=== PATIENT | male | born 1940 | race Caucasian/White ===

== ENCOUNTER 2017-05-13 05:13 | Observation (INO) ==
[2017-05-13] MEDS ORDERED: NITROGLYCERIN 2% OINTMENT 1gm PACKET TRANSDERMA ONE (05:24)
[2017-05-13] MEDS ORDERED: ASPIRIN 81 MG CHEWABLE TABLET PO ONE (05:24)
[2017-05-13] MEDS ORDERED: ONDANSETRON 4 MG/2 ML INJECTION IVP ONE (05:24)
[2017-05-13] MEDS ORDERED: MORPHINE SULFATE 4mg INJECTION IVP ONE (05:24)
[2017-05-13] MEDS ORDERED: NITROGLYCERIN 0.4 MG SUBLINGUAL TABLET SL PRN (05:24)
[2017-05-13] MEDS ORDERED: GI COCKTAIL 30 ML PO ONE (05:24)
[2017-05-13] MEDS: SALINE FLUSH 10ml SYRINGE IVF PRN ×2 (05:52→20:47)
--- NOTE | 2017-05-13 05:53 | Emergency Department Report ---
Chest Pain HPI - General Chief Complaint: Chest Pain Stated Complaint: Chest pain Time Seen by Provider: 05/13/17 05:23 - History of Present Illness HPI narrative: 76-year-old gentleman presents with chest pain brought in by EMS. History of coronary artery disease with triple vessel bypass performed in 2016. He awoke at approximately 3 AM with chest pain which did not resolve after 3 sublingual nitroglycerin tablets and presented by EMS at approximately 0515. He does have worse pain with inspiration, pain is between an ache and sharp, 6 out of 10 midsternal. - Related Data Home Medications Medication Instructions Recorded Confirmed Atorvastatin Calcium 20 mg PO HS #90 06/28/15 03/27/17 Donepezil HCl 10 mg PO DAILY #90 06/28/15 03/27/17 Aspirin 81 mg PO DAILY #30 tab 08/09/15 03/27/17 Metformin HCl 1,000 mg PO BIDWM #0 tab 08/09/15 03/27/17 Omeprazole 40 mg PO DAILY #0 cap 08/09/15 03/27/17 Memantine HCl [Memantine HCl] 10 mg PO BID 03/27/17 03/27/17 Metoprolol Tartrate [Lopressor] 25 mg PO AM 03/27/17 03/27/17 Metoprolol Tartrate [Lopressor] 50 mg PO HS 03/27/17 03/27/17 Previous Rx's Medication Instructions Recorded Orphenadrine Tab [Norflex] 100 mg PO TID #30 tab 03/27/17 Allergies Allergy/AdvReac Type Severity Reaction Status Date / Time No Known Drug Allergies Allergy Unknown Verified 05/13/17 05:39 Review of Systems All systems: reviewed and negative except as stated PFSH Patient Stated Medical History Cataracts Yes Hearing Loss Yes Hypertension Yes Myocardial Infarction Yes: 2014 Diabetes Mellitus Type 2 Yes Gastroesophageal Reflux Yes Disease Other GI Yes: DIVERTICULITIS - Social History Smoking status: Never smoker Substance use type: does not use Does patient use chewing tobacco?: No (previous ) Physical Exam - Limitations Limitations: no limitations - General General appearance: alert, in distress - Normal Exams: Head:: Normocephalic without trauma Chest/Respirations:: Clear all bhatt, with good airflow, and symmetry bilaterally Cardiovascular:: Regular rate and rhythm, without murmur or gallop, Pulses 2+ all extremities, capillary refill, <2 seconds all extremities Abdomen:: Bowel sounds positive, soft, non-tender, non-distended, no hepatosplenomegaly, masses or bruits noted - Chest Chest inspection: Present: other (some portion of pain is reproducible on exam with palpation.) Course Vital Signs Temperature 98.3 F 05/13/17 05:13 Pulse Rate 61 05/13/17 05:13 Respiratory Rate 18 05/13/17 05:13 Blood Pressure 129/61 05/13/17 05:13 Pulse Oximetry 95 05/13/17 05:13 Temperature 98.3 F 05/13/17 05:13 Pulse Rate 61 05/13/17 05:13 Respiratory Rate 18 05/13/17 05:13 Blood Pressure 129/61 05/13/17 05:13 Pulse Oximetry 95 05/13/17 05:13 Chest Pain - MDM Narrative Medical decision making narrative: IV normal saline bolus ordered, Nitropaste 1 inch, cardiac labs and EKG ordered. 4 mg of morphine given IV. Patient this time is comfortable and resting. Troponin initial, returns negative. Patient is admitted to Dr. Garcia in CCU for continued rule out cardiac etiology. Dr. Garcia is aware of. At this time d-dimer is still pending and I will follow d-dimer to make sure that is worked up if it returns significantly abnormal. - Differential Diagnosis Likely: stable angina, unstable angina pectoris, atypical chest pain, chest pain - Lab Data Attestation: I reviewed the patient's lab results. Result diagrams: 05/13/17 05:40 05/13/17 05:40 Lab Results 05/13/17 05/13/17 Range/Units 05:40 05:40 WBC 8.1 (4.5-11.0) T/MM3 RBC 4.68 (4.50-5.90) M/MM3 Hgb 13.7 (13.5-17.5) GM/DL Hct 41.4 (41-53) % MCV 88.5 (80-100) UM3 MCH 29.3 (26-34) UUG MCHC 33.1 (31-37) GM/DL RDW Std Deviation 43.9 (36.9-50.2) FL Plt Count 193 (130-400) T/MM3 MPV 8.4 L (9.4-12.4) UM3 Immature Gran % (Auto) 0.1 (0.0-0.5) % Neut % (Auto) 70.6 H (33-66) % Lymph % (Auto) 24.8 (23-45) % [place] % (Auto) 2.2 (0-9.0) % Eos % (Auto) 2.1 (0-4) % Baso % (Auto) 0.2 (0-2) % Neut # (Auto) 5.7 (1.8-7.7) T/MM3 Lymph # (Auto) 2.0 (1-4.8) T/MM3 [place] # (Auto) 0.2 (0-0.8) T/MM3 Eos # (Auto) 0.2 (0-0.5) T/MM3 Baso # (Auto) 0.0 (0-0.2) T/MM3 Abs Immat Gran (auto) 0.01 (0.00-0.03) T/MM3 Turbidity < 20 (0-20) Sodium 143 (134-144) MEQ/L Potassium 4.2 (3.6-5) MEQ/L Chloride 107 (98-107) MEQ/L Carbon Dioxide 24 (22-30) MEQ/L Anion Gap 12 (5-15) MEQ/L BUN 22.0 H (9-20) MG/DL Creatinine 1.2 (0.8-1.5) MG/DL GFR Calculation 59 BUN/Creatinine Ratio 18 (6-26) RATIO Glucose 110 (75-110) MG/DL Calculated Osmolality 279 (261-280) MOSM/KG Calcium 8.8 (8.4-10.2) MG/DL Total Bilirubin 0.40 (0.20-1.30) MG/DL Icterus Index < 2 (0-7) AST 17 (17-59) U/L ALT 27 (21-72) U/L Alkaline Phosphatase 69 (38-126) U/L Troponin I < 0.012 (0-0.12) ng/ml B-Natriuretic Peptide 154 (0-175) pg/mL Total Protein 6.4 (6.3-8.2) G/DL Albumin 3.6 (3.5-5.0) G/DL Globulin 2.8 (2.4-3.6) G/DL Albumin/Globulin Ratio 1.3 (1.1-2.2) RATIO Specimen Hemolysis 25 (0-25) - Radiology Data Attestation: I reviewed the patient's radiology results. Disposition Prescriptions: No Action Atorvastatin Calcium 20 mg PO HS #90 Donepezil HCl 10 mg PO DAILY #90 Metformin HCl 1,000 mg PO BIDWM #0 tab Omeprazole 40 mg PO DAILY #0 cap Metoprolol Tartrate [Lopressor] 50 mg PO HS Memantine HCl [Memantine HCl] 10 mg PO BID Aspirin 81 mg PO DAILY #30 tab Metoprolol Tartrate [Lopressor] 25 mg PO AM Orphenadrine Tab [Norflex] 100 mg PO TID #30 tab Referrals: PATRICIA DANIELS MD [Family Provider] -
--- NOTE | 2017-05-13 07:42 | XRay Report ---
Indication: chest pain PROCEDURE: XR chest 1V: Encounter: Initial Comparison: March 27, 2017 Findings: The lungs are stable in appearance without new focal airspace consolidation. There is no pleural effusion or pneumothorax. The heart size, pulmonary vascularity and mediastinal contours are unchanged. Prior CABG. IMPRESSION: Stable appearance of the chest without acute cardiopulmonary disease. .
[2017-05-13] MEDS ORDERED: MORPHINE SULFATE 10 MG SYRINGE IVP PRN (09:39)
[2017-05-13 09:51] VITALS: BMI 28.4
[2017-05-13] MEDS ORDERED: SALINE FLUSH 10ml SYRINGE ONE ×2 (10:10→11:13)
[2017-05-13] MEDS ORDERED: REGADENOSON 0.4 MG/5 ML INJECTION IVP ONE (10:10)
--- NOTE | 2017-05-13 14:42 | Cardiology History & Physical ---
History of Present Illness HPI: cp She was seen and examined in CCU around 8:30 AM 05/13/2017 Mr. Baugh is a very pleasant 76-year-old male presently demented and who lives with his caring at home. For the last several months she's had some intermittent atypical chest pain and seen in the office and a stress nuclear scan was ordered for April the patient and called back and canceled. Has been his previous state of health without recent chest pain until the morning of presentation 05/13/2017 patient was awakened from sleep a quitting "terrible chest pain right sided more of a sharp nature , worse with breathing, no radiation no associated symptoms of shortness of breath heartburn( dizziness or diaphoresis. give him to sublingual nitros made no change in his chest pain so she appropriately contacted 911 into the emergency department received an additional nitroglycerin without relief but morphine sulfate did relieve his chest pain completely. Chest pain was worse with breathing improved following morphine. No other worsening or relieving factors. No change with position meals or activity or shoulder and arm movement. No recent trauma or falls or sprain of the right shoulder and chest area. Pain was not reproducible by range of motion of the shoulder, although there was some mild reproducible tenderness over the right breast area. See physical exam below. There was no dyspnea he should and both had upper respiratory infection with some drainage and cough resolved one week ago. Patient is not having any cough fever or dyspnea at present time. noticed pt is chronically taking deep sighs at random times and not related with physical activity. She said she, on her own, brought down a [employer] on 05/12/2017 that he has not done any work. Review of Systems All systems PM: 10-point ROS was reviewed, no additional remarkable complaints except - Constitutional Constitutional: Absent: anorexia, chills, fever(s), headache(s) - EENMT Balance: Absent: vertigo, falling to one side Mouth/Throat: Absent: sore throat - Cardiovascular Cardiovascular: Present: chest pain. Absent: palpitations, syncope, dyspnea on exertion, orthopnea, edema - Respiratory Respiratory: Present: as per HPI. Absent: cough, dyspnea, dyspnea on exertion - Musculoskeletal Musculoskeletal: Present: other (no trauma injury to the right shoulder or chest no heavy lifting no falls). Absent: joint swelling, limited range of motion, muscle weakness - Integumentary/Breasts Integumentary: Present: as per HPI - Neurological Neurological: Present: dizziness (a chronic and after setting up. Is not happen if he takes few seconds to sit at the edge of the bed. Has improved several months ago after adjustment of medications.), memory loss (chronic and unchanged. Patient been diagnosed with dementia.) - Psychiatric Psychiatric: Absent: depression [facility], [facility] Patient Stated Medical History Dementia Yes: forgetful and progressing Cataracts Yes Hearing Loss Yes Hypertension Yes Myocardial Infarction Yes: 2016 Diabetes Mellitus Type 2 Yes Gastroesophageal Reflux Yes Disease Other GI Yes: DIVERTICULITIS Surgical History: None STEMI and CABG preserved LV function, includes DICKEY to LAD and SVG to ramus SVG sequentially to RPDA and RPL branch and obtuse marginal branch was not bypassable Surgery Took Pl., Doctor Carl Burgess at [facility]. Family History: Positive for OK and hypercholesterolemia diabetes and cancer - Social History Smoking status: Former smoker Substance use type: does not use Alcohol intake frequency: does not drink Current residence: Apartment/Private Home Medications Home Medications Medication Instructions Recorded Confirmed Type Atorvastatin Calcium 20 mg PO HS #90 06/28/15 05/13/17 History Metformin HCl 1,000 mg PO BIDWM #0 tab 08/09/15 05/13/17 History Omeprazole 40 mg PO DAILY #0 cap 08/09/15 05/13/17 History Memantine HCl 10 mg PO BID 03/27/17 05/13/17 History Metoprolol Tartrate [Lopressor] 25 mg PO BID 03/27/17 05/13/17 History Aspirin [Sanjana Chewable Aspirin] 81 mg PO DAILY 05/13/17 05/13/17 History Donepezil [Aricept] 10 mg PO DAILY 05/13/17 05/13/17 History Allergies Allergy/AdvReac Type Severity Reaction Status Date / Time No Known Drug Allergies Allergy Unknown Verified 05/13/17 05:39 Exam Vital signs: Temperature 98.3 F 05/13/17 05:13 Pulse Rate 66 05/13/17 13:50 Respiratory Rate 16 05/13/17 09:45 Blood Pressure 126/60 05/13/17 09:15 Pulse Oximetry 93 05/13/17 09:45 - Constitutional no acute distress - Routine HEENT Exam Head: Present: normocephalic, atraumatic Eye: Present: EOMI. Absent: PERRL (pupils are pinpoint and symmetrical (s/p MS RX)) ENT: Present: mucous membranes moist Nose: moist mucous membranes Throat: normal inspection - Routine Neck Exam Present: supple, normal carotid upstroke. Absent: JVD, carotid bruit, lymphadenopathy, thyromegaly - Routine Chest/Breast/Axilla Exam Chest wall: Present: tenderness - Routine Respiratory Exam Present: CTA bilaterally - Routine Cardiovascular Exam Present: RRR, murmur (2/6 apical sytsolic m) - Routine Abdominal Exam Present: soft, normoactive bowel sounds, non distended, non tender. Absent: organomegaly, mass - Routine Extremities Exam Present: no edema, pulses intact, normal capillary refill. Absent: cyanosis, clubbing, edema - Detailed Upper Extremity Exam Shoulder/Upper Arm: Right normal inspection, Right full ROM Elbow: Right normal inspection, Right wound - Routine Skin Exam Present: intact, dry. Absent: cyanosis, erythema - Routine Neurological Exam Present: alert, oriented X3, CN II-XII intact, normal reflexes, moving all extremities, vision grossly intact, hearing grossly intact, normal speech. Absent: motor deficit, hemineglect, facial asymmetry - Routine Psychiatric Exam Present: normal affect, normal thought process, cooperative Results 05/13/17 05:40 05/13/17 05:40 Cardiac Enzymes 05/13/17 Range/Units 09:26 Troponin I < 0.012 (0-0.12) ng/ml Intake and Output 05/12/17 05/13/17 05/13/17 22:59 06:59 14:59 Output Total 250 / 250 Balance -250 / -250 Output: Urine 250 / 250 Other: Urine Appearance Clear Urine Color Yellow Urine Odor Normal Stool Color Brown Stool Consistency Formed Size of Bowel Movement Moderate # Voids 1 Weight 89.9 kg Patient Weight 05/14/17 06:59 Weight 89.9 kg - EKG Interpretation EKG: WNL, sinus rhythm, normal ST/T, no acute changes EKG interpretations - Dysrhythmias Sinus rhythms and dysrhythmias: sinus rhythm Hospital Course This is a general summary of the patient's hospital course. For more details refer to the complete medical record. Time spent with patient: greater than 35 minutes DVT Prophylaxis: other (stress nuclear scan this morning, then ambulation) Assessment and Plan - Assessment and Plan cp atypical appears pleuritic CAD s/p NSTEMI and CABG 2 yrs ago admit to ccu r/o OK no evidence of PE, PTX or pneumonia stress nuc scan ordered and came back NL no OK on onzymes pt just had a run of NSVT so will observe in the hospital no ICU beds avaible in the area , so will clear upo ICU bed and send him to medical telemtry unit after 430 if no signofocant arrythmia. he was asymptomatic with NSVT w/o palpioations or angina check Mg level Discontinue nitroglycerin paste due to relative hypotension and dizziness and atypical nature of chest pain. Resume home meds Holding Glucophage, in case invasive cardiac testing is needed Accu-Cheks twice a day and when necessary
[2017-05-13] MEDS ORDERED: METFORMIN 1,000 MG TABLET PO SCH (17:30)
[2017-05-13] MEDS: METOPROLOL TARTRATE 50 MG PO SCH (18:16)
[2017-05-13] MEDS: METFORMIN 1000 MG PO SCH (18:16)
[2017-05-13] MEDS: MEMANTINE 10 MG PO SCH (20:47)
[2017-05-13] MEDS ORDERED: ATORVASTATIN 20 MG PO SCH (21:00)
[2017-05-14] MEDS ORDERED: OMEPRAZOLE 20 MG CAP - PT OWN PO SCH (06:30)
[2017-05-14 07:15] VITALS: RESP 16
[2017-05-14] MEDS: SALINE FLUSH 10ml SYRINGE IVF PRN (08:01)
[2017-05-14] MEDS: MEMANTINE 10 MG PO SCH (08:02)
[2017-05-14] MEDS: METOPROLOL TARTRATE 50 MG PO SCH (08:02)
[2017-05-14] MEDS: METFORMIN 1000 MG PO SCH (08:02)
[2017-05-14] MEDS ORDERED: ASPIRIN 81 MG CHEWABLE TABLET PO SCH (09:00)
[2017-05-14] MEDS ORDERED: ASPIRIN 81 MG PO SCH (09:00)
[2017-05-14 11:59] VITALS: BP 115/67; TEMP 98.2; O2SAT 96
--- NOTE | 2017-05-14 15:46 | Discharge Summary ---
Discharge Information Date of admission: 05/13/17 07:05 Attending Physician: Moiz Garcia MD Primary care physician: PATRICIA DANIELS History of Present Illness HPI: cp 05/14/17 15:41 Mr. Baugh has had a good day. He says long as he takes about 10 seconds sitting at the edge of the bed before standing up he does not get dizzy. He walked in the room bathroom felt quite well and steady on his feet. Has not had any further chest pain denies palpitations denies dyspnea no cough and no significant dizziness. Appetite has been good. He was watched overnight due to nonsustained ventricular tachycardia that he has had not any recurrence. He has occasional PVCs he had a 3 beat run of accelerated ventricular rhythm in the mid 50s. Underlying normal sinus rhythm is in the low 60s. Blood pressure is stable and actually went up upon standing according to Mabel SNIDER. His pharm. stress nuclear scan came back normal. NH ruled out. Telemetry stable. Symptoms resolved. Magnesium level came back 2. Patient and anxious to leave. asked me about how to handle his future chest pain and instructions were provided. I gave her the conclusion of her husbands chest pain be noncardiac. Follow-up for a Holter monitor is rescheduled in one to 2 weeks to follow-up on the above-mentioned dysrhythmia. I elected to keep a beta yanira dose of same. Follow-up with her PCP in 1-2 weeks is advised regarding noncardiac chest pain especially if recurrence up as. Would also check on her serum protein electrophoresis as screening for myeloma, as I have seen spontaneous chest wall pain elderly with that condition 05/14/17 15:52 Patient was initially admitted from emergency room with atypical chest pain negative initial troponin and d-dimer, pain is a right-sided worse with breathing improved following a morphine, no known trauma or heavy lifting to the chest/right shoulder. The patient's a cardiac history was admitted to CCU and ruled out nitroglycerin paste was discontinued active dizziness" stress nuclear scan was negative for ischemia, as were preparing to send him home on the evening of May 13, patient was noted to had some ventricular arrhythmia in the nonsustained VT, although entirely a symptomatic. We elected to observe overnight acute cardiac process. His course was very stable overnight as described above. Has been ambulatory symptomatically and clinically without clinically stable and discharged home with the diagnoses of chest pain resolved and noncardiac and no recurrence since admission and negative cardiac workup. Outpatient follow-up regarding ventricular dysrhythmia with a 24 Holter monitor. Hospital Course This is a general summary of the patient's hospital course. For more details refer to the complete medical record. Time spent with patient: greater than 35 minutes DVT Prophylaxis: other (ambulation) Exam Vital signs: Temperature 98.2 F 05/14/17 11:58 Pulse Rate 56 L 05/14/17 11:58 Respiratory Rate 16 05/14/17 11:58 Blood Pressure 115/67 05/14/17 11:58 Pulse Oximetry 96 05/14/17 11:58 - Constitutional no acute distress - Routine HEENT Exam Head: Present: normocephalic, atraumatic Eye: Present: EOMI, PERRL ENT: Present: mucous membranes moist Nose: moist mucous membranes - Routine Neck Exam Present: supple, normal carotid upstroke. Absent: JVD, carotid bruit, lymphadenopathy, thyromegaly - Routine Chest/Breast/Axilla Exam Chest wall: Absent: tenderness - Routine Respiratory Exam Present: CTA bilaterally - Routine Cardiovascular Exam Present: RRR, murmur (soft systolic murmur in the apex 1-2/6). Absent: irregular rhythm, JVD - Routine Abdominal Exam Present: soft, normoactive bowel sounds, non distended, non tender - Routine Extremities Exam Present: no edema, non tender, pulses intact, normal capillary refill. Absent: cyanosis, clubbing - Routine Skin Exam Present: intact, dry. Absent: cyanosis, erythema - Routine Neurological Exam Present: alert, CN II-XII intact, moving all extremities, vision grossly intact , hearing grossly intact, normal speech. Absent: motor deficit, hemineglect - Routine Psychiatric Exam Present: normal affect, normal thought process, cooperative, good insight Results 05/13/17 05:40 05/13/17 05:40 Intake and Output 05/14/17 05/14/17 05/14/17 06:59 14:59 22:59 Intake Total 300 / 300 480 / 480 Balance 300 / 300 480 / 480 Intake: Oral 300 / 300 480 / 480 Other: Urine Appearance Clear Urine Color Bright Yellow # Voids 1 1 # Bowel Movements 1 Weight 91.2 kg Patient Weight 05/15/17 06:59 Weight 91.2 kg - Imaging and Cardiology Stress echo: image reviewed EKG results: image reviewed - EKG Interpretation EKG: sinus rhythm Discharge Plan - Med Rec/Dispo Referrals/Follow Up: Moiz Garcia MD [Physician] - 05/27/17 10:00 am (halter monitor followup apt. Dr. Garcia June 02 at 2:45 Follow-up with PCP in 1-2 weeks regarding noncardiac chest pain ) Prescriptions: Continue Atorvastatin Calcium 20 mg PO HS #90 Metformin HCl 1,000 mg PO BIDWM #0 tab Omeprazole 40 mg PO DAILY #0 cap Memantine HCl 10 mg PO BID Aspirin [Sanjana Chewable Aspirin] 81 mg PO DAILY Metoprolol Tartrate [Lopressor] 25 mg PO BID Donepezil [Aricept] 10 mg PO DAILY - Disposition 01 Discharged Home, Self-Care - Dismissal Complete Discharge Instructions are:: Complete
[2017-05-14 16:04] VITALS: PULSE 57
[2017-05-14] MEDS ORDERED: DONEPEZIL 10 MG PO SCH (21:00)
--- NOTE | 2017-05-15 14:00 | Cardiology Report ---
PHARMACOLOGICAL STRESS NUCLEAR SCAN DATE OF PROCEDURE 05/13/2017 INDICATIONS Right-sided atypical chest pain. The patient has coronary artery disease with prior CABG and non-STEMI. NARRATIVE OF PROCEDURE The patient was injected with a 99mTc Myoview dose of 12.8 mCi. A Lexiscan dose of 0.4 mg was followed by a 99mTc Myoview dose of 32.1 mCi. The patient underwent low-level exercise stress with this following Lexiwalk protocol. He could not perform a full treadmill test. Rest EKG shows normal sinus rhythm, sinus dysrhythmia, 60 beats per minute. During the stress phase there were occasional PVCs present. There was no ST depression or elevation diagnostic of ischemia. Blood pressure at rest was 140/88, pulse 60 beats per minute. This nelson to 153/67, heart rate 103 beats per minute which is 70% of age-predicted maximum heart rate. Stress and rest perfusion images were reviewed and show no significant ischemia. There is a small area of reduced uptake noted in the inferior wall which may represent a small non-transmural fixed perfusion defect versus diaphragmatic attenuation artifact. The fact that the rest images exhibit lower uptake than the stress images may suggest the latter possibility. Gated images showed normal wall motion, normal contractility throughout, normal LVEF of 57% on stress and 64% on rest images. IMPRESSION 1. Inability to exercise. 2. Pharmacological/low-level exercise stress nuclear scan clinically and electrically negative for ischemia. 3. Occasional PVCs were present before and during the test. 4. Stress and rest perfusion images show no evidence of reversible ischemia. There is a small perfusion defect seen in the basal inferior wall that may represent a small non-transmural defect versus diaphragmatic attenuation artifact. 5. Gated images show normal wall motion, normal LV systolic function as described above. MTDD
== END 2017-05-14 16:30 | disposition home or self-care (01) ==
LOC: CCU 05:13 → ED 05:13 → CCU 08:10 → SRG 17:48
PROVIDERS: ADMIT Internal Medicine Cardiovascular Disease; ATTEND Internal Medicine Cardiovascular Disease